=== PATIENT | female | born 1955 | race Caucasian/White ===

== ENCOUNTER 2018-01-06 10:05 | Emergency (ER) | payer MEDICAID, MEDICARE ==
[2018-01-06] MEDS ORDERED: Meclizine 25 MG Tab PO ONE (10:32)
--- NOTE | 2018-01-06 10:35 | EDM.PDOC ---
ED HPI GENERAL MEDICAL PROBLEM - General Stated Complaint: DIZZY Time Seen by Provider: 01/06/18 10:05 Source of Information: Reports: Patient History Limitations: Reports: No Limitations - History of Present Illness INITIAL COMMENTS - FREE TEXT/NARRATIVE: 62 y.o.w.f came to the ed due to being dizzy in the past few days. Pt has a hard time walking do to dizziness. Pt has Vertigo in the past. To turn her head to either side makes her dizzy. Pt says she drink plenty of water, one cup of coffee in the morning. No trauma. No F/C no N/V/D or any other acute medical issues. BP Pulse 93 RR 16 Pulse ox 100% Temp 36.7 Onset Date: 01/04/18 Onset Time: 07:00 Duration: Day(s):, Getting Worse Location: Reports: Generalized Severity: Moderate (Dizzy) Improves with: Reports: Rest Worsens with: Reports: Movement Context: Reports: Sick Contact Associated Symptoms: Reports: Weakness, Other (Dizzy) - Related Data Allergies Allergy/AdvReac Type Severity Reaction Status Date / Time Penicillins Allergy Severe Airway Verified 01/06/18 12:04 Tightness Home Meds: Home Meds Cholecalciferol (Vitamin D3) [Vitamin D] 2,000 unit PO DAILY 09/27/15 [History] Hydrochlorothiazide [Microzide] 12.5 mg PO DAILY 09/27/15 [History] Meclizine [Antivert] 25 mg PO TID PRN #20 tab 01/06/18 [Rx] Omeprazole Magnesium [Prilosec Otc] 20 mg PO DAILY 01/06/18 [History] Past Medical History Cardiovascular History: Reports: High Cholesterol, Hypertension Gastrointestinal History: Reports: None Genitourinary History: Reports: None 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: Musculoskeletal History: Reports: None Neurological History: Reports: None Psychiatric History: Reports: None Endocrine/Metabolic History: Reports: None Oncologic (Cancer) History: Reports: Breast Other Oncologic History: still takes oral pill for cancer Dermatologic History: Reports: None - Infectious Disease History Infectious Disease History: Reports: Chicken Pox, Measles, Mumps - Past Surgical History Female Surgical History: Reports: Breast Biopsy, Other (See Below) Neurological Surgical History: Reports: Other (See Below) Musculoskeletal Surgical History: Reports: Other (See Below) Oncologic Surgical History: Reports: Lumpectomy, Other (See Below) Social & Family History - Family History HEENT: Reports: None Cardiac: Reports: [place] Respiratory: Reports: COPD GI: Reports: Diverticulitis : Reports: Other (See Below) Other Family History: diabetic OBGYN: Reports: Musculoskeletal: Reports: Gout Neurological: Reports: CVA Psychiatric: Reports: None Endocrine/Metabolic: Reports: Diabetes, type II Hematologic: Reports: None Immunologic: Reports: None Dermatologic: Reports: None Oncologic: Reports: None - Tobacco Use Smoking Status *Q: Current Every Day Smoker Years of Tobacco use: 30 Packs/Tins Daily: 0.2 Used Tobacco, but Quit: No - Alcohol Use Days Per Week of Alcohol Use: 2 Number of Drinks Per Day: 2 Total Drinks Per Week: 4 - Recreational Drug Use Recreational Drug Use: No ED ROS GENERAL - Review of Systems Review Of Systems: See Below Constitutional: Reports: Weakness, Fatigue HEENT: Reports: No Symptoms Respiratory: Reports: No Symptoms Cardiovascular: Reports: Lightheadedness Endocrine: Reports: No Symptoms GI/Abdominal: Reports: No Symptoms : Reports: No Symptoms Musculoskeletal: Reports: No Symptoms Skin: Reports: No Symptoms Neurological: Reports: Dizziness, Gait Disturbance (because of dizziness ) Psychiatric: Reports: No Symptoms Hematologic/Lymphatic: Reports: No Symptoms Immunologic: Reports: No Symptoms ED EXAM, NEURO - Physical Exam Exam: See Below Exam Limited By: No Limitations General Appearance: Alert, WD/WN, Mild Distress, Thin Eye Exam: Bilateral Eye: EOMI, Nystagmus (latterally lasting > 2 sec), PERRL Ears: Normal External Exam Nose: Normal Inspection, Normal Mucosa Throat/Mouth: Normal Inspection, Normal Lips, Normal Gums, Normal Voice, No Airway Compromise Head Exam: Atraumatic, Normocephalic Neck: Normal Inspection, Supple, Non-Tender, Full Range of Motion Respiratory/Chest: No Respiratory Distress, Lungs Clear Cardiovascular: Normal Peripheral Pulses, Regular Rate, Rhythm, No Edema, No Gallop, No JVD, No Murmur, No Rub GI/Abdominal: Normal Bowel Sounds, Soft, Non-Tender, No Organomegaly, No Distention, No Abnormal Bruit, No Mass, Pelvis Stable (Female) Exam: Deferred Rectal (Female) Exam: Deferred Neurological: Alert, Normal Mood/Affect, Normal Dorsiflexion, CN II-XII Intact, No Motor/Sensory Deficits, Oriented x 3, Abnormal Gait (because of being dizzy) Back Exam: Normal Inspection, Full Range of Motion Extremities: Normal Inspection, Normal Range of Motion, Non-Tender, No Pedal Edema, Normal Capillary Refill Psychiatric: Normal Affect, Normal Mood Skin Exam: Warm, Dry, Intact, Normal Color, No Rash EKG INTERPRETATION EKG Date: 01/06/18 Time: 14:30 Rhythm: NSR Rate (Beats/Min): 81 [place]: Normal P-Wave: Present QRS: Normal ST-T: Normal QT: Normal Comparison: NA - No Prior EKG Course - Vital Signs Text/Narrative:: 62 y.o.w.f came to the ed due to being dizzy in the past few days. Pt has a hard time walking do to dizziness. Pt has Vertigo in the past. To turn her head to either side makes her dizzy. Pt says she drink plenty of water, one cup of coffee in the morning. No trauma. No F/C no N/V/D or any other acute medical issues. BP 11/48 Pulse 93 RR 16 Pulse ox 100% Temp 36.7 PE: 62 y.o.w.f came to the ED with dizzyness/vertigo, norman when turning the head to either side, bilt Nystagmus Imaging: CT head: calcified brain and carotid arteries as per RAD Labs: GFR 28 Cr 1.9 BUN 26, CBC was nl TSH 15.7 Na 138 and K 3.5 Impression: elevated TSH, GFR 23, acute/subacute renal insufficiency, dehydration, vertigo Tx: NS. Antivert 12.17 pm Consultation: Dr. Bernstein, Manager Quantitative, : Give 2 liters of NA, repeat BMP and call back 3.12 pm Consultation: Dr. Bernstein, Neprologist [place]: Pt's BUN, CR and GFR improved, pt is responding to hydration. Pt must increaser her water intake and repeat the BMP this Tuesday. If the labs tests are further improving, no nephrology clinic appointment is necessary, if not, it is! Reexam: Pt's symptoms improved with hydration and antivert, pt was ambulating well on D/C Plan: D/C with instructions Last Recorded V/S: Last Vital Signs Temp 36.5 C 01/06/18 15:56 Pulse 84 01/06/18 15:56 Resp 16 01/06/18 15:56 BP 138/61 01/06/18 15:56 Pulse Ox 99 01/06/18 15:56 - Orders/Labs/Meds Orders: Active Orders 24 hr Category Date Time Status UA W/MICROSCOPIC [URIN] Stat Lab 01/06/18 11:00 Ordered EKG 12 Lead [EK] Routine Ther 01/06/18 14:15 Ordered Labs: Laboratory Tests 01/06/18 01/06/18 01/06/18 Range/Units 10:50 10:50 10:50 WBC 6.8 (4.5-12.0) X10-3/uL RBC 4.14 (3.23-5.20) x10(6)uL Hgb 12.6 (11.5-15.5) g/dL Hct 37.8 (30.0-51.3) % MCV 91.3 (80-96) fL MCH 30.3 (27.7-33.6) pg MCHC 33.2 (32.2-35.4) g/dL RDW 12.8 (11.5-15.5) % Plt Count 258 (125-369) X10(3)uL MPV 8.5 (7.4-10.4) fL Neut % (Auto) 66.1 (46-82) % Lymph % (Auto) 20.6 (13-37) % [place] % (Auto) 10.7 (4-12) % Eos % (Auto) 2 (1.0-5.0) % Baso % (Auto) 0 (0-2) % Neut # (Auto) 4.5 (1.6-8.3) # Lymph # (Auto) 1.4 (0.6-5.0) # [place] # (Auto) 0.7 (0.0-1.3) # Eos # (Auto) 0.2 (0.0-0.8) # Baso # (Auto) 0.0 (0.0-0.2) # Sodium 137 (135-145) mmol/L Potassium 3.5 (3.5-5.3) mmol/L Chloride 99 L (100-110) mmol/L Carbon Dioxide 27 (21-32) mmol/L BUN 26 H (7-18) mg/dL Creatinine 1.8 H (0.55-1.02) mg/dL Est Cr Clr Drug Dosing TNP Estimated GFR (MDRD) 28 L (>60) BUN/Creatinine Ratio 14.4 (9-20) Glucose 145 H (80-116) mg/dL Calcium 9.3 (8.6-10.2) mg/dL TSH, Ultra Sensitive 15.70 H* (0.36-3.74) IU/mL Urine Color (YELLOW) Urine Appearance (CLEAR) Urine pH (5.0-6.5) Ur Specific [place] (1.010-1.025) Urine Protein (NEGATIVE) mg/dL Urine Glucose (UA) (NEGATIVE) mg/dL Urine Ketones (NEGATIVE) mg/dL Urine Occult Blood (NEGATIVE) Urine Nitrite (NEGATIVE) Urine Bilirubin (NEGATIVE) Urine Urobilinogen (NEGATIVE) mg/dL Ur Leukocyte Esterase (NEGATIVE) Urine WBC (0) Ur Squamous Epith Cells (NS,R,O) Urine Bacteria (NS) 01/06/18 01/06/18 Range/Units 11:00 14:40 WBC (4.5-12.0) X10-3/uL RBC (3.23-5.20) x10(6)uL Hgb (11.5-15.5) g/dL Hct (30.0-51.3) % MCV (80-96) fL MCH (27.7-33.6) pg MCHC (32.2-35.4) g/dL RDW (11.5-15.5) % Plt Count (125-369) X10(3)uL MPV (7.4-10.4) fL Neut % (Auto) (46-82) % Lymph % (Auto) (13-37) % [place] % (Auto) (4-12) % Eos % (Auto) (1.0-5.0) % Baso % (Auto) (0-2) % Neut # (Auto) (1.6-8.3) # Lymph # (Auto) (0.6-5.0) # [place] # (Auto) (0.0-1.3) # Eos # (Auto) (0.0-0.8) # Baso # (Auto) (0.0-0.2) # Sodium 136 (135-145) mmol/L Potassium 3.8 (3.5-5.3) mmol/L Chloride 100 (100-110) mmol/L Carbon Dioxide 24 (21-32) mmol/L BUN 25 H (7-18) mg/dL Creatinine 1.3 H (0.55-1.02) mg/dL Est Cr Clr Drug Dosing 36.64 Estimated GFR (MDRD) 41 L (>60) BUN/Creatinine Ratio 19.2 (9-20) Glucose 97 (80-116) mg/dL Calcium 8.2 L (8.6-10.2) mg/dL TSH, Ultra Sensitive (0.36-3.74) IU/mL Urine Color Yellow (YELLOW) Urine Appearance Clear (CLEAR) Urine pH 5.0 (5.0-6.5) Ur Specific [place] 1.020 (1.010-1.025) Urine Protein Negative (NEGATIVE) mg/dL Urine Glucose (UA) Normal (NEGATIVE) mg/dL Urine Ketones Negative (NEGATIVE) mg/dL Urine Occult Blood Negative (NEGATIVE) Urine Nitrite Negative (NEGATIVE) Urine Bilirubin Negative (NEGATIVE) Urine Urobilinogen Normal (NEGATIVE) mg/dL Ur Leukocyte Esterase Negative (NEGATIVE) Urine WBC 0-5 (0) Ur Squamous Epith Cells Few H (NS,R,O) Urine Bacteria Few H (NS) Meds: Medications Discontinued Medications Generic Name Dose Route Start Last Admin Trade Name Freq PRN Reason Stop Dose Admin Sodium Chloride 1,000 mls @ 999 mls/hr 01/06/18 12:24 01/06/18 12:40 Normal Saline IV 01/06/18 13:24 999 mls/hr .BOLUS ONE Administration Sodium Chloride 1,000 mls @ 999 mls/hr 01/06/18 13:45 01/06/18 13:48 Normal Saline IV 999 mls/hr ASDIRECTED [place] Administration Meclizine HCl 50 mg 01/06/18 10:32 01/06/18 10:45 Antivert PO 01/06/18 10:33 50 mg ONETIME ONE Administration Departure - Departure Time of Disposition: 15:29 Disposition: Home, Self-Care 01 Condition: Good Clinical Impression: Dehydration, Vertigo, Renal insufficiency - Discharge Information Prescriptions: Meclizine [Antivert] 25 mg PO TID PRN #20 tab PRN Reason: Dizziness Instructions: Vertigo, Neum-gi-Ynas, Dehydration, Adult, Dyjg-uw-[id number], Chronic Kidney Disease, Adult Referrals: Arelis Cali NP [Primary Care Provider] - Forms: ED Department Discharge Additional Instructions: You are responding well to hydration. You must increase your water intake and repeat the BMP lab test this Tuesday. If the labs tests are further improving, no nephrology clinic appointment is necessary, if not, you need to see a Manager Quantitative next week. Please take Antivert for severe dizziness and get the Carotis Ultrasound done this Tuesday as scheduled. Please come back to the ED if your symptoms get worse acutely - My Orders Last 24 Hours: My Active Orders 01/06/18 11:00 UA W/MICROSCOPIC [URIN] Stat 01/06/18 14:15 EKG 12 Lead [EK] Routine - Assessment/Plan Last 24 Hours: My Active Orders 01/06/18 11:00 UA W/MICROSCOPIC [URIN] Stat 01/06/18 14:15 EKG 12 Lead [EK] Routine
[2018-01-06] MEDS ORDERED: Sodium Chloride 0.9% 1,000 ML IV ONE (12:24)
[2018-01-06] MEDS ORDERED: Sodium Chloride 0.9% 1,000 ML IV SCH (13:45)
--- NOTE | 2018-01-06 14:43 | CT ---
INDICATION: Dizziness for a week. CT HEAD WITHOUT CONTRAST: Serial contiguous 2.5 and 5 mm sections were obtained through the brain without contrast and revealed no shift of midline structures or ventricular abnormalities. Total exam DLP = 950.31 mGy-cm. No definite abnormal areas of density were identified intracranially. Calcifications are noted in the vertebral, basilar, and internal carotid arteries. The cranium appeared to be intact. Mastoid air cells were well-aerated. In the maxillary antra bilaterally, there appear to be small air fluid levels suggesting the possibility of sinusitis. Some thickening of the linings of a few of the ethmoidal air cells is also noted. IMPRESSION: 1. No acute intracranial abnormality. 2. Cerebrovascular disease with calcifications in the internal carotid and vertebral arteries, as well as the basilar artery. 3. Probable mild sinusitis. MTDD
[2018-01-06 15:56] VITALS: BP 138/61
== END 2018-01-06 15:56 | disposition home or self-care (01) ==
LOC: FB.ED 10:05
DX: E86.0 Dehydration (principal); N28.9 Disorder of kidney and ureter, unspecified; F17.210 Nicotine dependence, cigarettes, uncomplicated; R94.6 Abnormal results of thyroid function studies; I10 Essential (primary) hypertension; E78.00 Pure hypercholesterolemia, unspecified; Z88.0 Allergy status to penicillin; Z79.899 Other long term (current) drug therapy
CPT/HCPCS: 36415; 70450; 80048; 81001; 84443; 85025; 93005; 96360; 96361; 99284; A9270; J7040

== ENCOUNTER 2021-09-11 18:08 | Observation (INO) | payer MEDICARE ==
--- NOTE | 2021-09-11 18:32 | EDM.PDOC ---
ED HPI GENERAL MEDICAL PROBLEM - General Stated Complaint: WEAKNESS Time Seen by Provider: 09/11/21 18:10 Source of Information: Reports: Patient - History of Present Illness INITIAL COMMENTS - FREE TEXT/NARRATIVE: 65-year-old lady came to the emergency department due to a 3 to 4-day history of nausea with some vomiting and significant diarrhea. She has had general flulike symptoms including chills, arthralgias/myalgias, weakness/fatigue and other symptoms as mentioned above. She has been trying to drink extra fluid including Pedialyte and has taken Imodium but continues to have symptoms. She denies chest pain, shortness of breath, dysuria, hematuria. - Related Data Allergies Allergy/AdvReac Type Severity Reaction Status Date / Time Penicillins Allergy Severe Airway Verified 09/11/21 23:26 Tightness, Rash Home Meds: Home Meds Cholecalciferol (Vitamin D3) [Vitamin D] 2,000 unit PO DAILY 09/27/15 [History] Omeprazole Magnesium [Prilosec Otc] 20 mg PO DAILY 01/06/18 [History] Aspirin [Ecotrin EC] 81 mg PO DAILY 09/11/21 [History] Losartan/Hydrochlorothiazide [Losartan-HCTZ 50-12.5 MG] 1 each PO DAILY 09/11/21 [History] atorvaSTATin [Lipitor] 20 mg PO BEDTIME 09/11/21 [History] Past Medical History HEENT History: Reports: Impaired Vision Cardiovascular History: Reports: High Cholesterol, Hypertension Gastrointestinal History: Reports: None Genitourinary History: Reports: None 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 History: Reports: None Neurological History: Reports: None Psychiatric History: Reports: None Endocrine/Metabolic History: Reports: None Oncologic (Cancer) History: Reports: Breast Other Oncologic History: still takes oral pill for cancer Dermatologic History: Reports: None - Infectious Disease History Infectious Disease History: Reports: Chicken Pox, Measles, Mumps - Past Surgical History Female Surgical History: Reports: Breast Biopsy, Other (See Below) Neurological Surgical History: Reports: Other (See Below) Musculoskeletal Surgical History: Reports: Other (See Below) Oncologic Surgical History: Reports: Lumpectomy, Other (See Below) Social & Family History - Family History HEENT: Reports: None Cardiac: Reports: [place] Respiratory: Reports: COPD GI: Reports: Diverticulitis : Reports: Other (See Below) Other Family History: diabetic OBGYN: Reports: Musculoskeletal: Reports: Gout Neurological: Reports: CVA Psychiatric: Reports: None Endocrine/Metabolic: Reports: Diabetes, type II Hematologic: Reports: None Immunologic: Reports: None Dermatologic: Reports: None Oncologic: Reports: None - Caffeine Use Caffeine Use: Reports: Coffee, Tea ED ROS GENERAL - Review of Systems Review Of Systems: See Below Constitutional: Reports: Weakness HEENT: Reports: Rhinitis, Sinus Problem Respiratory: Reports: Cough Cardiovascular: Reports: No Symptoms Endocrine: Reports: No Symptoms GI/Abdominal: Reports: Abdominal Pain, Diarrhea, Decreased Appetite, Nausea, Vomiting : Reports: No Symptoms Musculoskeletal: Reports: Muscle Pain Skin: Reports: No Symptoms Neurological: Reports: Difficulty Walking, Weakness Psychiatric: Reports: No Symptoms Hematologic/Lymphatic: Reports: No Symptoms Immunologic: Reports: No Symptoms ED EXAM, GI/ABD - Physical Exam Exam: See Below Text/Narrative:: Patient was able to stand without assistance and she was able to stand throug hout the interview and exam but she was a little unsteady on her feet seems weak and tired Exam Limited By: No Limitations General Appearance: Alert, Mild Distress Eyes: Bilateral: EOMI Throat/Mouth: Other (Mucous membranes are dry) Head: Atraumatic, Normocephalic Neck: Normal Inspection Respiratory/Chest: No Respiratory Distress, Lungs Clear Cardiovascular: Normal Peripheral Pulses, Regular Rate, Rhythm GI/Abdominal Exam: Normal Bowel Sounds, Tender Back Exam: Normal Inspection Extremities: Normal Inspection Neurological: Alert, Oriented, CN II-XII Intact, Normal Cognition, Normal Gait, Other (Weakness) Psychiatric: Normal Affect, Normal Mood Skin Exam: Warm, Dry Course - Vital Signs Text/Narrative:: Lab testing was negative for influenza and coronavirus. He likely has gastrointestinal virus versus gastritis versus food poisoning. Labs moderate to severe hypokalemia with hypomagnesemia, and normal anion gap metabolic alkalosis. Patient was given magnesium sulfate IV, 2 L lactated Ringer's, and 40 mg potassium chloride. After this treatment was completed she still had potassium of 2.2. Magnesium had corrected from 1.0 to 2.9. Patient states that she does not feel any better. Labs also showed thrombocytosis. This is likely reactive. Consulted with 1 call and was able to speak with Dr. Coats, internal medicine. I reviewed labs with him including metabolic alkalosis. He recommended normal saline with 20 mill equivalents potassium and 40 mg potassium chloride p.o. Repeat BMP and magnesium when completed in approximately 4 hours. Patient will likely need further oral replenishment of potassium. With magnesium fully corrected and renal function satisfactory if this further treatment does not begin to increase potassium patient should be considered for transfer to [place] for further evaluation and treatment. Last Recorded V/S: Last Vital Signs Temp 36.3 C 09/11/21 22:30 Pulse 76 09/11/21 22:30 Resp 16 09/11/21 22:30 BP 175/66 H 09/11/21 22:30 Pulse Ox 95 09/11/21 22:30 - Orders/Labs/Meds Orders: Active Orders 24 hr Category Date Time Status BASIC METABOLIC PANEL,BMP [CHEM] Stat Lab 09/12/21 06:30 Ordered NS + KCl 20mEq/L [Normal Saline with 20 mEq KCl] 1,000 Med 09/12/21 02:15 Active ml IV ASDIRECTED Potassium Chloride [Klor-Con M20] Med 09/12/21 02:10 Once 40 meq PO ONETIME ONE Medication Orders Potassium Chloride/Sodium Chloride (Normal Saline With 20 Meq Kcl) 1,000 mls @ 250 mls/hr IV ASDIRECTED [place] Potassium Chloride (Potassium Chloride 20 Meq Tab.Er) 40 meq PO ONETIME ONE Stop: 09/12/21 02:11 Labs: Laboratory Tests 09/11/21 09/11/21 09/11/21 Range/Units 18:43 18:43 18:43 WBC 10.2 (3.0-10.3) x10-3/uL RBC 4.23 (3.60-5.20) x10(6)uL Hgb 12.7 (11.4-15.5) g/dL Hct 37.8 (34.2-48.2) % MCV 89.3 (76.7-100.5) fL MCH 30.0 (23.9-33.9) pg MCHC 33.6 (31.9-34.8) g/dL RDW 13.3 (12.3-16.5) % Plt Count 523 H (151-488) x10(3)uL MPV 7.3 (7.1-12.4) fL Neut % (Auto) 66.4 (30.8-76.2) % Lymph % (Auto) 18.6 (18.4-52.1) % [place] % (Auto) 12.3 (4.4-15.7) % Eos % (Auto) 2.1 (0.6-8.1) % Baso % (Auto) 0.6 (0.2-1.5) % Neut # (Auto) 6.8 H (1.5-6.3) x10-3/uL Lymph # (Auto) 1.9 (1.0-4.4) x10-3/uL [place] # (Auto) 1.3 H (0.3-1.0) x10-3/uL Eos # (Auto) 0.2 (0.0-0.8) x10-3/uL Baso # (Auto) 0.1 (0.0-0.1) x10-3/uL Sodium 140 (135-145) mmol/L Potassium 2.2 L* D (3.5-5.3) mmol/L Chloride 94 L D (100-110) mmol/L Carbon Dioxide 39 H (21-32) mmol/L BUN 16 (7-18) mg/dL Creatinine 0.9 (0.55-1.02) mg/dL Est Cr Clr Drug Dosing TNP Estimated GFR (MDRD) > 60 (>60) BUN/Creatinine Ratio 17.8 (9-20) Glucose 98 (80-116) mg/dL Calcium 8.7 (8.6-10.2) mg/dL Magnesium 1.0 L* (1.8-2.5) mg/dL Total Bilirubin 0.9 (0.1-1.3) mg/dL AST 25 (5-25) IU/L ALT 18 (12-36) U/L Alkaline Phosphatase 77 (56-112) IU/L Total Protein 8.4 H (6.0-8.0) g/dL Albumin 4.3 (3.2-4.6) g/dL Globulin 4.1 g/dL Albumin/Globulin Ratio 1.1 Influenza Type A RNA (NEGATIVE) Influenza Type B RNA (NEGATIVE) SARS-CoV-2 RNA ([place]) (NEGATIVE) 09/11/21 09/12/21 09/12/21 Range/Units 18:57 00:45 00:45 WBC (3.0-10.3) x10-3/uL RBC (3.60-5.20) x10(6)uL Hgb (11.4-15.5) g/dL Hct (34.2-48.2) % MCV (76.7-100.5) fL MCH (23.9-33.9) pg MCHC (31.9-34.8) g/dL RDW (12.3-16.5) % Plt Count (151-488) x10(3)uL MPV (7.1-12.4) fL Neut % (Auto) (30.8-76.2) % Lymph % (Auto) (18.4-52.1) % [place] % (Auto) (4.4-15.7) % Eos % (Auto) (0.6-8.1) % Baso % (Auto) (0.2-1.5) % Neut # (Auto) (1.5-6.3) x10-3/uL Lymph # (Auto) (1.0-4.4) x10-3/uL [place] # (Auto) (0.3-1.0) x10-3/uL Eos # (Auto) (0.0-0.8) x10-3/uL Baso # (Auto) (0.0-0.1) x10-3/uL Sodium 140 (135-145) mmol/L Potassium 2.2 L* (3.5-5.3) mmol/L Chloride 97 L (100-110) mmol/L Carbon Dioxide 38 H (21-32) mmol/L BUN 13 (7-18) mg/dL Creatinine 0.8 (0.55-1.02) mg/dL Est Cr Clr Drug Dosing 54.71 Estimated GFR (MDRD) > 60 (>60) BUN/Creatinine Ratio 16.3 (9-20) Glucose 95 (80-116) mg/dL Calcium 8.8 (8.6-10.2) mg/dL Magnesium 2.9 H (1.8-2.5) mg/dL Total Bilirubin (0.1-1.3) mg/dL AST (5-25) IU/L ALT (12-36) U/L Alkaline Phosphatase (56-112) IU/L Total Protein (6.0-8.0) g/dL Albumin (3.2-4.6) g/dL Globulin g/dL Albumin/Globulin Ratio Influenza Type A RNA Negative (NEGATIVE) Influenza Type B RNA Negative (NEGATIVE) SARS-CoV-2 RNA ([place]) Negative (NEGATIVE) Meds: Medications Generic Name Dose Route Start Last Admin Trade Name Ramiro PRN Reason Stop Dose Admin Potassium Chloride/Sodium Chloride 1,000 mls @ 250 mls/hr 09/12/21 02:15 Normal Saline With 20 Meq Kcl IV ASDIRECTED [place] Potassium Chloride 40 meq 09/12/21 02:10 Potassium Chloride 20 Meq Tab.Er PO 09/12/21 02:11 ONETIME ONE Discontinued Medications Generic Name Dose Route Start Last Admin Trade Name Ramiro PRN Reason Stop Dose Admin Lactated Ringer's 1,000 mls @ 999 mls/hr 09/11/21 19:22 09/11/21 20:17 Ringers, Lactated IV 09/11/21 20:22 999 mls/hr BOLUS ONE Administration Magnesium Sulfate 50 mls @ 12.5 mls/hr 09/11/21 21:00 09/11/21 20:59 Magnesium Sulfate In Water 4 Gm/50 Ml IV 09/12/21 00:59 12.5 mls/hr ONETIME ONE Administration Lactated Ringer's 1,000 mls @ 250 mls/hr 09/11/21 21:12 09/11/21 21:17 Ringers, Lactated IV 09/12/21 01:11 250 mls/hr BOLUS ONE Administration Ondansetron HCl 4 mg 09/11/21 19:22 09/11/21 20:43 Ondansetron 4 Mg Tab.Dis PO 09/11/21 19:23 4 mg ONETIME ONE Administration Potassium Chloride 40 meq 09/11/21 19:23 09/11/21 20:59 Potassium Chloride 20 Meq Tab.Er PO 09/11/21 19:24 40 meq ONETIME ONE Administration Potassium Chloride 40 meq 09/12/21 02:06 Potassium Chloride 20 Meq Tab.Er PO 09/12/21 02:07 ONETIME ONE Departure - Departure Time of Disposition: 02:18 Disposition: Refer to Observation Condition: Good Clinical Impression: Hypokalemia, Metabolic alkalosis, Thrombocytosis, Hypochloremia - Discharge Information *PRESCRIPTION DRUG MONITORING PROGRAM REVIEWED*: Not Applicable *COPY OF PRESCRIPTION DRUG MONITORING REPORT IN PATIENT KHADRA: Not Applicable Sepsis Event Note (ED) - Focused Exam Vital Signs: Vital Signs Temp Pulse Pulse Resp BP Pulse Ox 09/11/21 22:30 36.3 C 76 16 175/66 H 95 09/11/21 18:08 36.3 C 82 18 138/76 98 - My Orders Last 24 Hours: My Active Orders 09/12/21 02:10 Potassium Chloride [Klor-Con M20] 40 meq PO ONETIME ONE 09/12/21 02:15 NS + KCl 20mEq/L [Normal Saline with 20 mEq KCl] 1,000 ml IV ASDIRECTED 09/12/21 06:30 BASIC METABOLIC PANEL,BMP [CHEM] Stat - Assessment/Plan Last 24 Hours: My Active Orders 09/12/21 02:10 Potassium Chloride [Klor-Con M20] 40 meq PO ONETIME ONE 09/12/21 02:15 NS + KCl 20mEq/L [Normal Saline with 20 mEq KCl] 1,000 ml IV ASDIRECTED 09/12/21 06:30 BASIC METABOLIC PANEL,BMP [CHEM] Stat
[2021-09-11] MEDS ORDERED: Lactated Ringers 1,000 ML IV ONE ×2 (19:22→21:12)
[2021-09-11] MEDS ORDERED: Ondansetron 4 MG Tab.DIS PO ONE (19:22)
[2021-09-11] MEDS ORDERED: Potassium Chloride 20 MEQ Tab.ER PO ONE (19:23)
[2021-09-11 19:44] LABS: CORONAVIRUS COVID-19 NAA NEGATIVE (NEGATIVE)
[2021-09-11] MEDS ORDERED: Magnesium Sulfate/Water 50 ML IV ONE (21:00)
[2021-09-12] MEDS ORDERED: Potassium Chloride 20 MEQ Tab.ER PO ONE ×3 (02:06→09:35)
[2021-09-12] MEDS: NS + KCl 20mEq/L 1,000 ML IV SCH ×4 (02:12→14:26)
--- NOTE | 2021-09-12 09:27 | PCM.HP.2 ---
H&P History of Present Illness - General Date of Service: 09/12/21 Admit Problem/Dx: Admission Diagnosis/Problem Admission Diagnosis/Problem Hypokalemia, gastrointestinal losses Source of Information: Patient History Limitations: Reports: No Limitations - History of Present Illness Initial Comments - Free Text/Narative: Radhika was admitted through the ER last night for weakness, nausea, vomiting and diarrhea. She also complains of some dizziness. She was found to have hypo kalemia and admitted for IV fluid replacement. She has hypertension, GERD well- controlled. She drinks alcohol occasionally but does not smoke. This morning she feels much improved except for mild nausea. Denies any abdominal pain headache or chest pain. - Related Data Allergies/Adverse Reactions: Allergies Allergy/AdvReac Type Severity Reaction Status Date / Time Penicillins Allergy Severe Airway Verified 09/11/21 23:26 Tightness, Rash Home Medications: Home Meds Cholecalciferol (Vitamin D3) [Vitamin D] 2,000 unit PO DAILY 09/27/15 [History] Omeprazole Magnesium [Prilosec Otc] 20 mg PO DAILY 01/06/18 [History] Aspirin [Ecotrin EC] 81 mg PO DAILY 09/11/21 [History] Losartan/Hydrochlorothiazide [Losartan-HCTZ 50-12.5 MG] 1 each PO DAILY 09/11/21 [History] atorvaSTATin [Lipitor] 20 mg PO BEDTIME 09/11/21 [History] Past Medical History HEENT History: Reports: Impaired Vision Cardiovascular History: Reports: High Cholesterol, Hypertension Gastrointestinal History: Reports: None Genitourinary History: Reports: None 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: Musculoskeletal History: Reports: None Neurological History: Reports: None Psychiatric History: Reports: None Endocrine/Metabolic History: Reports: None Oncologic (Cancer) History: Reports: Breast Other Oncologic History: still takes oral pill for cancer Dermatologic History: Reports: None - Infectious Disease History Infectious Disease History: Reports: Chicken Pox, Measles, Mumps - Past Surgical History Head Surgeries/Procedures: Reports: None HEENT Surgical History: Reports: Tonsillectomy Cardiovascular Surgical History: Reports: None GI Surgical History: Reports: Colostomy, EGD Female Surgical History: Reports: Breast Biopsy, Other (See Below) Other Female Surgeries/Procedures: lumpectomy on LT with some reconstruction Endocrine Surgical History: Reports: None Neurological Surgical History: Reports: Other (See Below) Other Neurological Surgeries/Procedures: neck surgery 2000 Musculoskeletal Surgical History: Reports: Other (See Below) Other Musculoskeletal Surgeries/Procedures:: neck surgery 2000 Oncologic Surgical History: Reports: Lumpectomy, Other (See Below) Other Oncologic Surgeries/Procedures: Lt Dermatological Surgical History: Reports: None Social & Family History - Family History HEENT: Reports: None Cardiac: Reports: [place] Respiratory: Reports: COPD GI: Reports: Diverticulitis : Reports: Other (See Below) Other Family History: diabetic OBGYN: Reports: Musculoskeletal: Reports: Gout Neurological: Reports: CVA Psychiatric: Reports: None Endocrine/Metabolic: Reports: Diabetes, type II Hematologic: Reports: None Immunologic: Reports: None Dermatologic: Reports: None Oncologic: Reports: None - Tobacco Use Tobacco Use Status *Q: Current Some Day Tobacco User Years of Tobacco use: 30 Packs/Tins Daily: 0 Used Tobacco, but Quit: Yes Month/Year Tobacco Last Used: 2020 - Caffeine Use Caffeine Use: Reports: Coffee - Alcohol Use Days Per Week of Alcohol Use: 7 Number of Drinks Per Day: 2 Total Drinks Per Week: 14 - Recreational Drug Use Recreational Drug Use: No H&P Review of Systems - Review of Systems: Review Of Systems: Comprehensive ROS is negative, except as noted in HPI. Exam - Exam Exam: See Below - Vital Signs Vital Signs: Last Vital Signs Temp 96.1 F L 09/12/21 02:30 Pulse 69 09/12/21 02:30 Resp 16 09/12/21 02:30 BP 164/78 H 09/12/21 02:30 Pulse Ox 96 09/12/21 02:30 Weight: 52.345 kg - Exam General: Alert, Oriented, 4 HEENT: PERRLA, Hearing Intact, Mucosa Moist & [place], Nares Patent, Normal Nasal Septum, Posterior Pharynx Clear, Conjunctiva Clear, EOMI, EACs Clear, TMs Clear Neck: Supple, Trachea Midline, 2 Lungs: Clear to Auscultation, Normal Respiratory Effort Cardiovascular: Regular Rate, Regular Rhythm GI/Abdominal Exam: Normal Bowel Sounds, Soft, Non-Tender, No Organomegaly, No Distention, No Abnormal Bruit, No Mass, Pelvis Stable (Female) Exam: Deferred Rectal (Female) Exam: Deferred Back Exam: Normal Inspection, Full Range of Motion, NT Extremities: Normal Inspection, Normal Range of Motion, Non-Tender, No Pedal Edema, Normal Capillary Refill Skin: Warm, Dry, Intact Neurological: Cranial Nerves Intact, Reflexes Equal Bilateral Neuro Extensive - Mental Status: Alert, Oriented x3, Normal Mood/Affect, Normal Cognition Neuro Extensive - Motor, Sensory, Reflexes: CN II-XII Intact, Normal Gait, Normal Reflexes Psychiatric: Alert, Normal Affect, Normal Mood - Patient Data Lab Results Last 24 hrs: Laboratory Results - last 24 hr 09/11/21 09/11/21 09/11/21 Range/Units 18:43 18:43 18:43 WBC 10.2 (3.0-10.3) x10-3/uL RBC 4.23 (3.60-5.20) x10(6)uL Hgb 12.7 (11.4-15.5) g/dL Hct 37.8 (34.2-48.2) % MCV 89.3 (76.7-100.5) fL MCH 30.0 (23.9-33.9) pg MCHC 33.6 (31.9-34.8) g/dL RDW 13.3 (12.3-16.5) % Plt Count 523 H (151-488) x10(3)uL MPV 7.3 (7.1-12.4) fL Neut % (Auto) 66.4 (30.8-76.2) % Lymph % (Auto) 18.6 (18.4-52.1) % [place] % (Auto) 12.3 (4.4-15.7) % Eos % (Auto) 2.1 (0.6-8.1) % Baso % (Auto) 0.6 (0.2-1.5) % Neut # (Auto) 6.8 H (1.5-6.3) x10-3/uL Lymph # (Auto) 1.9 (1.0-4.4) x10-3/uL [place] # (Auto) 1.3 H (0.3-1.0) x10-3/uL Eos # (Auto) 0.2 (0.0-0.8) x10-3/uL Baso # (Auto) 0.1 (0.0-0.1) x10-3/uL Sodium 140 (135-145) mmol/L Potassium 2.2 L* D (3.5-5.3) mmol/L Chloride 94 L D (100-110) mmol/L Carbon Dioxide 39 H (21-32) mmol/L BUN 16 (7-18) mg/dL Creatinine 0.9 (0.55-1.02) mg/dL Est Cr Clr Drug Dosing TNP Estimated GFR (MDRD) > 60 (>60) BUN/Creatinine Ratio 17.8 (9-20) Glucose 98 (80-116) mg/dL Calcium 8.7 (8.6-10.2) mg/dL Magnesium 1.0 L* (1.8-2.5) mg/dL Total Bilirubin 0.9 (0.1-1.3) mg/dL AST 25 (5-25) IU/L ALT 18 (12-36) U/L Alkaline Phosphatase 77 (56-112) IU/L Total Protein 8.4 H (6.0-8.0) g/dL Albumin 4.3 (3.2-4.6) g/dL Globulin 4.1 g/dL Albumin/Globulin Ratio 1.1 Influenza Type A RNA (NEGATIVE) Influenza Type B RNA (NEGATIVE) SARS-CoV-2 RNA ([facility]) (NEGATIVE) 09/11/21 09/12/21 09/12/21 Range/Units 18:57 00:45 00:45 WBC (3.0-10.3) x10-3/uL RBC (3.60-5.20) x10(6)uL Hgb (11.4-15.5) g/dL Hct (34.2-48.2) % MCV (76.7-100.5) fL MCH (23.9-33.9) pg MCHC (31.9-34.8) g/dL RDW (12.3-16.5) % Plt Count (151-488) x10(3)uL MPV (7.1-12.4) fL Neut % (Auto) (30.8-76.2) % Lymph % (Auto) (18.4-52.1) % [place] % (Auto) (4.4-15.7) % Eos % (Auto) (0.6-8.1) % Baso % (Auto) (0.2-1.5) % Neut # (Auto) (1.5-6.3) x10-3/uL Lymph # (Auto) (1.0-4.4) x10-3/uL [place] # (Auto) (0.3-1.0) x10-3/uL Eos # (Auto) (0.0-0.8) x10-3/uL Baso # (Auto) (0.0-0.1) x10-3/uL Sodium 140 (135-145) mmol/L Potassium 2.2 L* (3.5-5.3) mmol/L Chloride 97 L (100-110) mmol/L Carbon Dioxide 38 H (21-32) mmol/L BUN 13 (7-18) mg/dL Creatinine 0.8 (0.55-1.02) mg/dL Est Cr Clr Drug Dosing 54.71 Estimated GFR (MDRD) > 60 (>60) BUN/Creatinine Ratio 16.3 (9-20) Glucose 95 (80-116) mg/dL Calcium 8.8 (8.6-10.2) mg/dL Magnesium 2.9 H (1.8-2.5) mg/dL Total Bilirubin (0.1-1.3) mg/dL AST (5-25) IU/L ALT (12-36) U/L Alkaline Phosphatase (56-112) IU/L Total Protein (6.0-8.0) g/dL Albumin (3.2-4.6) g/dL Globulin g/dL Albumin/Globulin Ratio Influenza Type A RNA Negative (NEGATIVE) Influenza Type B RNA Negative (NEGATIVE) SARS-CoV-2 RNA ([place]) Negative (NEGATIVE) 09/12/21 Range/Units 06:25 WBC (3.0-10.3) x10-3/uL RBC (3.60-5.20) x10(6)uL Hgb (11.4-15.5) g/dL Hct (34.2-48.2) % MCV (76.7-100.5) fL MCH (23.9-33.9) pg MCHC (31.9-34.8) g/dL RDW (12.3-16.5) % Plt Count (151-488) x10(3)uL MPV (7.1-12.4) fL Neut % (Auto) (30.8-76.2) % Lymph % (Auto) (18.4-52.1) % [place] % (Auto) (4.4-15.7) % Eos % (Auto) (0.6-8.1) % Baso % (Auto) (0.2-1.5) % Neut # (Auto) (1.5-6.3) x10-3/uL Lymph # (Auto) (1.0-4.4) x10-3/uL [place] # (Auto) (0.3-1.0) x10-3/uL Eos # (Auto) (0.0-0.8) x10-3/uL Baso # (Auto) (0.0-0.1) x10-3/uL Sodium 142 (135-145) mmol/L Potassium 2.8 L* (3.5-5.3) mmol/L Chloride 102 D (100-110) mmol/L Carbon Dioxide 36 H (21-32) mmol/L BUN 11 (7-18) mg/dL Creatinine 0.8 (0.55-1.02) mg/dL Est Cr Clr Drug Dosing 54.71 Estimated GFR (MDRD) > 60 (>60) BUN/Creatinine Ratio 13.8 (9-20) Glucose 81 (80-116) mg/dL Calcium 8.1 L (8.6-10.2) mg/dL Magnesium 2.2 (1.8-2.5) mg/dL Total Bilirubin (0.1-1.3) mg/dL AST (5-25) IU/L ALT (12-36) U/L Alkaline Phosphatase (56-112) IU/L Total Protein (6.0-8.0) g/dL Albumin (3.2-4.6) g/dL Globulin g/dL Albumin/Globulin Ratio Influenza Type A RNA (NEGATIVE) Influenza Type B RNA (NEGATIVE) SARS-CoV-2 RNA ([place]) (NEGATIVE) Result Diagrams: 09/11/21 18:43 09/12/21 06:25 Sepsis Event Note - Evaluation Sepsis Screening Result: No Definite Risk - Focused Exam Vital Signs: Vital Signs Temp Pulse Resp BP Pulse Ox 09/12/21 02:30 96.1 F L 69 16 164/78 H 96 09/11/21 22:30 97.3 F 76 16 175/66 H 95 - Problem List (1) Gastroenteritis SNOMED Code(s): 42865037 ICD Code: K52.9 - NONINFECTIVE GASTROENTERITIS AND COLITIS, UNSPECIFIED Status: Acute Current Visit: Yes (2) HTN (hypertension) SNOMED Code(s): 59859315 ICD Code: I10 - ESSENTIAL (PRIMARY) HYPERTENSION Status: Acute Current Visit: Yes Qualifiers: Hypertension type: primary hypertension Qualified Code(s): I10 - Essential (primary) hypertension (3) Hypomagnesemia SNOMED Code(s): 495433060 ICD Code: E83.42 - HYPOMAGNESEMIA Status: Acute Current Visit: Yes (4) Hypokalemia SNOMED Code(s): 72109987 ICD Code: E87.6 - HYPOKALEMIA Status: Acute Current Visit: Yes (5) Metabolic alkalosis SNOMED Code(s): 3706560 ICD Code: E87.3 - ALKALOSIS Status: Acute Current Visit: Yes (6) Dehydration SNOMED Code(s): 80395697 ICD Code: E86.0 - DEHYDRATION Status: Acute Current Visit: No (7) Renal insufficiency SNOMED Code(s): 037905267, 243554476 ICD Code: N28.9 - DISORDER OF KIDNEY AND URETER, UNSPECIFIED Status: Acute Current Visit: No Problem List Initiated/Reviewed/Updated: Yes Orders Last 24hrs: Active Orders 24 hr Category Date Time Status Patient Status [ADT] Routine ADT 09/12/21 02:09 Active Pulse Oximetry [RC] .PRN Care 09/12/21 02:09 Active VTE/DVT Education [RC] Click to Edit Care 09/12/21 02:10 Active Vital Signs [RC] 08,12,16,20,00,04 Care 09/12/21 02:09 Active Regular Diet [DIET] Diet 09/12/21 Breakfast Active BASIC METABOLIC PANEL,BMP [CHEM] AM Lab 09/13/21 05:11 Ordered MAGNESIUM [CHEM] AM Lab 09/13/21 05:11 Ordered Aspirin [Halfprin] Med 09/13/21 09:00 Ordered 81 mg PO DAILY Cholecalciferol (Vitamin D3) [Vitamin D3] Med 09/13/21 09:00 Ordered 2,000 unit PO DAILY NS + KCl 20mEq/L [Normal Saline with 20 mEq KCl] 1,000 Med 09/12/21 02:15 Active ml IV ASDIRECTED Omeprazole Magnesium [Prilosec Otc] Med 09/13/21 09:00 Ordered 20 mg PO DAILY Potassium Chloride [Klor-Con M20] Med 09/12/21 14:00 Ordered 40 meq PO TID atorvaSTATin [Lipitor] Med 09/12/21 21:00 Ordered 20 mg PO BEDTIME DVT/VTE Prophylaxis Reflex [OM.PC] Per Unit Routine Oth 09/12/21 02:09 Ordered Sequential Compression Device [OM.PC] Routine Oth 09/12/21 02:09 Ordered Resuscitation Status Routine Resus Stat 09/12/21 02:09 Ordered Medication Orders Aspirin (Aspirin 81 Mg Tab.Ec) 81 mg PO DAILY [facility] Atorvastatin Calcium (Atorvastatin 20 Mg Tab) 20 mg PO BEDTIME [facility] Potassium Chloride/Sodium Chloride (Normal Saline With 20 Meq Kcl) 1,000 mls @ 250 mls/hr IV ASDIRECTED [place] Last Admin: 09/12/21 06:15 Dose: 250 mls/hr Documented by: Infusion: 09/12/21 06:12 Dose: 250 mls/hr Documented by: Admin: 09/12/21 02:12 Dose: 250 mls/hr Documented by: [place] Non-Formulary Medication (Cholecalciferol (Vitamin D3) [Vitamin D3]) 2,000 unit PO DAILY [facility] Non-Formulary Medication (Omeprazole Magnesium [Prilosec Otc]) 20 mg PO DAILY [facility] Potassium Chloride (Potassium Chloride 20 Meq Tab.Er) 40 meq PO TID [facility] Assessment/Plan Comment:: Potassium was improved this morning, but will continue with oral replacement IV fluids. Repeat labs in the morning, and discharge if within reference range.
[2021-09-12] MEDS: Aspirin 81 MG Tab.EC**OWN MED PO SCH (11:44)
[2021-09-12] MEDS: CHOLECALCIFEROL 50 MCG PO SCH (11:45)
[2021-09-12] MEDS: LOSARTAN HCTZ PO SCH (11:45)
[2021-09-12] MEDS: OMEPRAZOLE MAGNESIUM 20 MG PO SCH (11:46)
[2021-09-12] MEDS: Potassium Chloride 20 MEQ Tab.ER PO SCH ×2 (14:26→20:02)
[2021-09-12] MEDS: Sodium Chloride 0.9% 10 ML Syringe FLUSH PRN ×2 (17:40→20:05)
[2021-09-12] MEDS: Metoprolol Succinate 50 MG Tab.ER PO SCH (20:02)
[2021-09-12] MEDS ORDERED: Labetalol 20 MG/4 ML Syringe IVPUSH ONE ×2 (22:11→22:35)
[2021-09-12] MEDS: Ondansetron 4 MG/2 ML SDV IVPUSH PRN (22:22)
[2021-09-12] MEDS ORDERED: Morphine 2 MG/ML SYRINGE IVPUSH ONE (23:39)
[2021-09-13] MEDS ORDERED: Cholecalciferol (Vitamin D3) 25 MCG Tab PO SCH (09:00)
[2021-09-13] MEDS ORDERED: Prochlorperazine 10 MG in Sodium Chloride 0.9% 50 ML IV PRN (09:00)
[2021-09-13] MEDS ORDERED: Aspirin 81 MG Tab.EC PO SCH (09:00)
[2021-09-13] MEDS ORDERED: Labetalol 20 MG/4 ML Syringe IVPUSH ONE (09:01)
--- NOTE | 2021-09-13 09:04 | PCM.PN ---
- General Info Date of Service: 09/13/21 Subjective Update: Radhika had a rough night with uncontrolled blood pressure, nausea vomiting and dizziness. This morning she still has nausea, mild headache intermittent, denies fever or chills. She does feel lightheaded,and vertiginous( spinning) Functional Status: Reports: Pain Controlled. Denies: Tolerating Diet - Review of Systems Pulmonary: Reports: No Symptoms Cardiovascular: Reports: No Symptoms - Patient Data Vitals - Most Recent: Last Vital Signs Temp 97.9 F 09/13/21 04:00 Pulse 64 09/13/21 04:00 Resp 16 09/13/21 04:00 BP 150/76 H 09/13/21 04:00 Pulse Ox 94 L 09/13/21 04:00 Weight - Most Recent: 52.345 kg I&O - Last 24 Hours: Intake & Output 09/12/21 09/13/21 09/13/21 22:59 06:59 14:59 Intake Total 997 Balance 997 Lab Results Last 24 Hours: Laboratory Results - last 24 hr 09/12/21 09/13/21 Range/Units 23:55 06:00 Sodium 140 (135-145) mmol/L Potassium 3.7 4.2 (3.5-5.3) mmol/L Chloride 102 (100-110) mmol/L Carbon Dioxide 29 (21-32) mmol/L BUN 10 (7-18) mg/dL Creatinine 0.8 (0.55-1.02) mg/dL Est Cr Clr Drug Dosing 54.71 mL/min Estimated GFR (MDRD) > 60 (>60) BUN/Creatinine Ratio 12.5 (9-20) Glucose 106 (80-116) mg/dL Calcium 8.7 (8.6-10.2) mg/dL Magnesium 1.5 L (1.8-2.5) mg/dL Med Orders - Current: Current Medications Aspirin (Aspirin 81 Mg Tab.EcOwn Med) 81 mg PO DAILY [facility] Last Admin: 09/12/21 11:44 Dose: 81 mg Documented by: Atorvastatin Calcium (Atorvastatin 20 Mg TabOwn Med) 20 mg PO BEDTIME [facility] Last Admin: 09/12/21 20:03 Dose: 20 mg Documented by: Prochlorperazine Edisylate 10 (mg/ Sodium Chloride) 52 mls @ 150 mls/hr IV Q6H PRN PRN Reason: Nausea/Vomiting Labetalol HCl (Labetalol 20 Mg/4 Ml Syringe) 10 mg IVPUSH ONETIME ONE; Protocol Stop: 09/13/21 09:02 Metoprolol Succinate (Metoprolol Succinate 50 Mg Tab.Er) 50 mg PO BEDTIME [facility] Last Admin: 09/12/21 20:02 Dose: 50 mg Documented by: Omeprazole Magnesium [Prilosec Otc] 20 Mg Tablet.)Own Med 20 mg PO ACBREAKFAST [facility] Last Admin: 09/12/21 11:46 Dose: 20 mg Documented by: Cholecalciferol ( Vitamin D3) 50 Mcg TabOwn Med 1 each PO DAILY [facility] Last Admin: 09/12/21 11:45 Dose: 1 each Documented by: Losartan-Hctz 50-12. (5mgOwn Med) 1 each PO DAILY [facility] Last Admin: 09/12/21 11:45 Dose: 1 each Documented by: Ondansetron HCl (Ondansetron 4 Mg/2 Ml Sdv) 4 mg IVPUSH Q4H PRN PRN Reason: Nausea/Vomiting Last Admin: 09/12/21 22:22 Dose: 4 mg Documented by: Sodium Chloride (Sodium Chloride 0.9% 10 Ml Syringe) 10 ml FLUSH ASDIRECTED PRN PRN Reason: flush Last Admin: 09/12/21 20:05 Dose: 10 ml Documented by: Discontinued Medications Aspirin (Aspirin 81 Mg Tab.Ec) 81 mg PO DAILY [facility] Cholecalciferol (Cholecalciferol (Vitamin D3) 25 Mcg Tab) 50 mcg PO DAILY [facility] Lactated Ringer's (Ringers, Lactated) 1,000 mls @ 999 mls/hr IV BOLUS ONE Stop: 09/11/21 20:22 Last Admin: 09/11/21 20:17 Dose: 999 mls/hr Documented by: Magnesium Sulfate (Magnesium Sulfate In Water 4 Gm/50 Ml) 50 mls @ 12.5 mls/hr IV ONETIME ONE Stop: 09/12/21 00:59 Last Admin: 09/11/21 20:59 Dose: 12.5 mls/hr Documented by: Lactated Ringer's (Ringers, Lactated) 1,000 mls @ 250 mls/hr IV BOLUS ONE Stop: 09/12/21 01:11 Last Admin: 09/11/21 21:17 Dose: 250 mls/hr Documented by: Potassium Chloride/Sodium Chloride (Normal Saline With 20 Meq Kcl) 1,000 mls @ 250 mls/hr IV ASDIRECTED [facility] Last Admin: 09/12/21 14:26 Dose: 250 mls/hr Documented by: Labetalol HCl (Labetalol 20 Mg/4 Ml Syringe) 20 mg IVPUSH ONETIME ONE; Protocol Stop: 09/12/21 22:12 Last Admin: 09/12/21 22:18 Dose: 20 mg Documented by: Labetalol HCl (Labetalol 20 Mg/4 Ml Syringe) 20 mg IVPUSH ONETIME ONE; Protocol Stop: 09/12/21 22:36 Last Admin: 09/12/21 22:41 Dose: 20 mg Documented by: Morphine Sulfate (Morphine 2 Mg/Ml Syringe) 2 mg IVPUSH ONETIME ONE Stop: 09/12/21 23:40 Last Admin: 09/12/21 23:53 Dose: 2 mg Documented by: Ondansetron HCl (Ondansetron 4 Mg Tab.Dis) 4 mg PO ONETIME ONE Stop: 09/11/21 19:23 Last Admin: 09/11/21 20:43 Dose: 4 mg Documented by: Potassium Chloride (Potassium Chloride 20 Meq Tab.Er) 40 meq PO ONETIME ONE Stop: 09/11/21 19:24 Last Admin: 09/11/21 20:59 Dose: 40 meq Documented by: Potassium Chloride (Potassium Chloride 20 Meq Tab.Er) 40 meq PO ONETIME ONE Stop: 09/12/21 02:07 Last Admin: 09/12/21 02:18 Dose: 40 meq Documented by: Potassium Chloride (Potassium Chloride 20 Meq Tab.Er) 40 meq PO ONETIME ONE Stop: 09/12/21 02:11 Last Admin: 09/12/21 02:23 Dose: Not Given Documented by: Potassium Chloride (Potassium Chloride 20 Meq Tab.Er) 40 meq PO TID [facility] Last Admin: 09/12/21 20:02 Dose: 40 meq Documented by: Potassium Chloride (Potassium Chloride 20 Meq Tab.Er) 40 meq PO ONETIME ONE Stop: 09/12/21 09:36 Last Admin: 09/12/21 11:04 Dose: 40 meq Documented by: - Exam Quality Assessment: No: Supplemental Oxygen General: Alert, Lethargic HEENT: Pupils Equal Neck: Supple Lungs: Clear to Auscultation Cardiovascular: Regular Rate GI/Abdominal Exam: Normal Bowel Sounds, Soft Extremities: Normal Inspection Neurological: No New Focal Deficit, Normal Gait - Patient Data Lab Results Last 24 hrs: Laboratory Results - last 24 hr 09/12/21 09/13/21 Range/Units 23:55 06:00 Sodium 140 (135-145) mmol/L Potassium 3.7 4.2 (3.5-5.3) mmol/L Chloride 102 (100-110) mmol/L Carbon Dioxide 29 (21-32) mmol/L BUN 10 (7-18) mg/dL Creatinine 0.8 (0.55-1.02) mg/dL Est Cr Clr Drug Dosing 54.71 mL/min Estimated GFR (MDRD) > 60 (>60) BUN/Creatinine Ratio 12.5 (9-20) Glucose 106 (80-116) mg/dL Calcium 8.7 (8.6-10.2) mg/dL Magnesium 1.5 L (1.8-2.5) mg/dL Result Diagrams: 09/11/21 18:43 09/13/21 06:00 Sepsis Event Note - Evaluation Sepsis Screening Result: No Definite Risk - Focused Exam Vital Signs: Vital Signs Temp Pulse Resp BP Pulse Ox 09/13/21 04:00 97.9 F 64 16 150/76 H 94 L 09/13/21 03:41 61 155/78 H 96 09/13/21 01:38 73 164/77 H 95 09/13/21 00:45 70 174/85 H 93 L 09/13/21 00:00 97.6 F 70 19 194/95 H 92 L 09/12/21 22:49 73 17 173/86 H 95 09/12/21 22:27 69 18 167/81 H 96 09/12/21 22:16 71 20 194/100 H 97 09/12/21 22:12 96.9 F 77 20 200/80 H 95 - Problem List & Annotations (1) Vertigo SNOMED Code(s): 832559986 Code(s): R42 - DIZZINESS AND GIDDINESS Status: Acute Current Visit: Yes (2) Gastroenteritis SNOMED Code(s): 30212338 Code(s): K52.9 - NONINFECTIVE GASTROENTERITIS AND COLITIS, UNSPECIFIED Status: Acute Current Visit: Yes (3) HTN (hypertension) SNOMED Code(s): 70655654 Code(s): I10 - ESSENTIAL (PRIMARY) HYPERTENSION Status: Acute Current Visit: Yes Qualifiers: Hypertension type: primary hypertension Qualified Code(s): I10 - Essential (primary) hypertension (4) Hypomagnesemia SNOMED Code(s): 435951970 Code(s): E83.42 - HYPOMAGNESEMIA Status: Acute Current Visit: Yes (5) Hypokalemia SNOMED Code(s): 23416440 Code(s): E87.6 - HYPOKALEMIA Status: Acute Current Visit: Yes (6) Metabolic alkalosis SNOMED Code(s): 3249190 Code(s): E87.3 - ALKALOSIS Status: Acute Current Visit: Yes (7) Dehydration SNOMED Code(s): 65055003 Code(s): E86.0 - DEHYDRATION Status: Acute Current Visit: No (8) Renal insufficiency SNOMED Code(s): 678917449, 444084872 Code(s): N28.9 - DISORDER OF KIDNEY AND URETER, UNSPECIFIED Status: Acute Current Visit: No - Problem List Review Problem List Initiated/Reviewed/Updated: Yes - My Orders Last 24 Hours: My Active Orders 09/12/21 11:45 Aspirin [Halfprin] 81 mg PO DAILY Non-Formulary Medication [NF Drug] 1 each PO DAILY Non-Formulary Medication [NF Drug] 1 each PO DAILY Omeprazole Magnesium [Prilosec Otc] 20 mg PO ACBREAKFAST 09/12/21 17:55 Sodium Chloride 0.9% [Saline Flush] 10 ml FLUSH ASDIRECTED PRN 09/12/21 21:00 Metoprolol Succinate [Toprol XL] 50 mg PO BEDTIME atorvaSTATin [Lipitor] 20 mg PO BEDTIME 09/13/21 09:00 Head wo Cont [CT] Routine CBC WITH AUTO DIFF [HEME] Routine Prochlorperazine [Compazine] 10 mg Sodium Chloride 0.9% [Normal Saline] 50 ml IV Q6H 09/13/21 09:01 Labetalol [Normodyne] 10 mg IVPUSH ONETIME ONE 09/14/21 05:11 COMPREHENSIVE METABOLIC PN,CMP [CHEM] AM - Plan Plan:: Potassium was improved this morning. Will obtain CT head,CBC,and treat BP with Labetalol. As well,we will use Compazine for dizziness. Keep one more day.
[2021-09-13] MEDS ORDERED: Prochlorperazine 10 MG/2 ML SDV ONE (09:22)
[2021-09-13] MEDS: Sodium Chloride 0.9% 10 ML Syringe FLUSH PRN (09:29)
[2021-09-13] MEDS: Sodium Chloride 0.9% 1,000 ML IV SCH ×2 (09:29→19:26)
[2021-09-13] MEDS: Aspirin 81 MG Tab.EC**OWN MED PO SCH (10:43)
[2021-09-13] MEDS: OMEPRAZOLE MAGNESIUM 20 MG PO SCH (10:43)
[2021-09-13] MEDS: CHOLECALCIFEROL 50 MCG PO SCH (10:43)
[2021-09-13] MEDS: LOSARTAN HCTZ PO SCH (10:44)
--- NOTE | 2021-09-13 13:20 | PCM.EKG ---
#1 Interpretation EKG Date: 09/13/21 Rhythm: NSR [place]: Normal P-Wave: Present QRS: Normal Comparison: NA - No Prior EKG
[2021-09-13] MEDS: Potassium Chloride 20 MEQ Tab.ER PO SCH (18:35)
[2021-09-13] MEDS ORDERED: Enalaprilat 1.25 MG/ML SDV IVPUSH ONE (18:38)
[2021-09-13] MEDS: Dexamethasone 4 MG/ML SDV IVPUSH SCH (19:33)
[2021-09-13] MEDS: Metoprolol Succinate 50 MG Tab.ER PO SCH (21:17)
[2021-09-14] MEDS: Dexamethasone 4 MG/ML SDV IVPUSH SCH ×2 (00:02→05:09)
[2021-09-14] MEDS: Ondansetron 4 MG/2 ML SDV IVPUSH PRN (00:02)
[2021-09-14] MEDS: Sodium Chloride 0.9% 1,000 ML IV SCH (05:09)
[2021-09-14] MEDS: OMEPRAZOLE MAGNESIUM 20 MG PO SCH (07:30)
[2021-09-14] MEDS ORDERED: Aspirin 81 MG Tab.EC**OWN MED PO SCH (07:59)
[2021-09-14] MEDS ORDERED: OMEPRAZOLE MAGNESIUM 20 MG PO SCH (08:01)
[2021-09-14] MEDS ORDERED: CHOLECALCIFEROL 50 MCG PO SCH (08:03)
[2021-09-14] MEDS ORDERED: LOSARTAN HCTZ PO SCH (08:04)
[2021-09-14] MEDS ORDERED: Dexamethasone 4 MG/ML 5 ML MDV IVPUSH ONE (08:28)
[2021-09-14] MEDS ORDERED: Gadoteridol 279.3 MG/ML 10 ML SDV IVPUSH ONE (08:32)
[2021-09-14] MEDS ORDERED: Aspirin 81 MG Tab.Chew *PTOM PO SCH (09:00)
[2021-09-14 09:20] VITALS: BP 153/91; PULSE 74
--- NOTE | 2021-09-15 07:11 | DISCH ---
DISCHARGE DATE: 09/14/2021 REASON FOR ADMISSION: 1. Hypokalemia. 2. Vomiting. 3. Hypomagnesemia. DISCHARGE DIAGNOSES: 1. Vertigo. 2. Cerebellar mass. 3. Hypertension. BRIEF HISTORY: A 65-year-old female brought in because of vomiting, weakness, and diarrhea. She was found to have low magnesium and potassium, which were replaced promptly. However, she persisted and complains of dizziness especially when standing. The MRI subsequently revealed 2 cm mass in the cerebellum. Decision was made to transfer, no available beds as of 09/13/2021, but there is a bed that has opened up today on September 14, 2021. I gave her dexamethasone 2 mg every 6 hours and aspirin was stopped. PPI was given for GI distress and prophylaxis. She will be discharged by ambulance. I spent more than 35 minutes in the transfer. /[id number] CARLOS/JUMANA
[2021-09-15] MEDS ORDERED: OMEPRAZOLE MAGNESIUM 20 MG PO SCH (07:30)
[2021-09-15] MEDS ORDERED: Pantoprazole 40 MG Tab.CR PO SCH (09:00)
== END 2021-09-14 10:53 ==
LOC: FB.ED 18:08 → FB.MS 09-12 02:08
PROVIDERS: ADMIT Family Medicine; ATTEND Family Medicine
DX: E87.6 Hypokalemia (principal); G93.89 Other specified disorders of brain; K52.9 Noninfective gastroenteritis and colitis, unspecified; E83.42 Hypomagnesemia; E87.3 Alkalosis; N28.9 Disorder of kidney and ureter, unspecified; I10 Essential (primary) hypertension; K21.9 Gastro-esophageal reflux disease without esophagitis; F17.210 Nicotine dependence, cigarettes, uncomplicated; E78.00 Pure hypercholesterolemia, unspecified; Z88.0 Allergy status to penicillin; Z79.899 Other long term (current) drug therapy; Z79.82 Long term (current) use of aspirin; Z98.890 Other specified postprocedural states; Z20.822 Contact with and (suspected) exposure to COVID-19
CPT/HCPCS: 0240U; 36415; 70450; 70553; 80048; 80053; 83735; 84132; 84484; 85025; 93005; 96365; 96366; 96367; 96375; 96376; 99284; 99285; A9270; A9579; G0378; J0780; J1100; J2270; J2405; J3475; J3480; J3490; J7030; J7120

== ENCOUNTER 2021-10-18 21:16 | Emergency (ER) | payer MEDICARE ==
[2021-10-18] MEDS ORDERED: Propofol 200 MG/20 ML SDV IV ONE (21:17)
[2021-10-18] MEDS ORDERED: Rocuronium 100 MG/10 ML MDV IV ONE (21:17)
[2021-10-18] MEDS ORDERED: Succinylcholine 200 MG/10 ML MDV IV ONE (21:17)
[2021-10-18] MEDS ORDERED: Midazolam 1 MG/ML 2 ML SDV ONE (21:44)
[2021-10-18] MEDS ORDERED: VANCOmycin 1.25 GM/250 ML 1.25 GM in Premix Bag 1 BAG IV ONE (21:52)
[2021-10-18] MEDS ORDERED: Cefepime 2 GM Vial IVPUSH ONE (22:05)
[2021-10-18] MEDS ORDERED: Potassium Chloride 20 MEQ in Premix Bag 1 BAG IV ONE (22:06)
[2021-10-18] MEDS ORDERED: Magnesium Sulfate/Water 2 GM in Premix Bag 1 BAG IV ONE (22:06)
[2021-10-18 22:26] LABS: BASE EXCESS VENOUS,POC -1 mmol/L (-2 - 3+); PCO2 VENOUS,POC 42 mmHg (41-51); PH VENOUS,POC 7.37 pH Units (7.32-7.43)
[2021-10-18] MEDS ORDERED: Norepinephrine Bit/D5W Premix 250 ML ONE (22:40)
[2021-10-18] MEDS ORDERED: Midazolam 1 MG/ML 2 ML SDV IVPUSH ONE (22:45)
[2021-10-18] MEDS ORDERED: Norepinephrine Bit/D5W Premix 4 MG in Premix Bag 1 BAG IV SCH (23:00)
[2021-10-19 01:53] VITALS: BP 111/57; PULSE 130
== END 2021-10-18 23:25 ==
LOC: SUPCPDRO 21:16 → FB.ED 21:16
DX: A41.9 Sepsis, unspecified organism (principal); R65.21 Severe sepsis with septic shock; N17.9 Acute kidney failure, unspecified; J96.01 Acute respiratory failure with hypoxia; G93.40 Encephalopathy, unspecified; I48.91 Unspecified atrial fibrillation; C34.90 Malignant neoplasm of unspecified part of unspecified bronchus or lung; C79.31 Secondary malignant neoplasm of brain; D70.9 Neutropenia, unspecified; R50.81 Fever presenting with conditions classified elsewhere; E78.00 Pure hypercholesterolemia, unspecified; I10 Essential (primary) hypertension; Z88.0 Allergy status to penicillin; Z79.82 Long term (current) use of aspirin; Z79.899 Other long term (current) drug therapy; Z20.822 Contact with and (suspected) exposure to COVID-19
CPT/HCPCS: 31500; 36415; 43752; 51702; 71045; 80053; 83605; 83735; 83880; 84484; 85025; 85379; 85610; 85730; 87040; 87077; 87186; 93005; 96365; 96368; 96375; 99285; J0330; J0692; J1642; J2250; J2704; J3370; J3475; J3480; J3490; U0002